=== PATIENT | male | born 1980 | race Caucasian/White ===

== ENCOUNTER 2021-11-14 11:01 | Emergency (ER) | payer OTHER ==
[~2021-11-14] VITALS: Ht 177.8 cm; Wt 99.8 kg
[2021-11-14] MEDS ORDERED: ALTEPLASE 100 MG/VIAL VIAL IV ONE (11:04)
--- NOTE | 2021-11-14 11:05 | NUR ---
BIBRA 89 FROM WORK C/O SOB, DIAPHORETIC, PALE SKIN COLOR, LOC, HIT HIS HEAD ON THE CONCRETE. BLOOD SUGAR 209. 88% ON ROOMA AIR, 95% ON NONREBREATHER. PT STATED HE HAS CHEST PRESSURE ON HIS UPPER CHEST. HAS HX OF BLOOD CLOT JUN 2021, PMD TOLD HIM TO TAKE IBUPROFEN AND PAIN WENT AWAY AND NO ADDITIONAL TESTS WERE DONE. PT ATTCHED TO MONITOR. 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 DR BERTRAND BALL AT BEDSIDE WITH ULTRASOUND. COVID TEST COLLECTED AND SENT.
[2021-11-14 11:29] LABS: BASOPHILS % (AUTO) 0.6 % (0.0-2.0); EOSINOPHILS % (AUTO) 4.8 % (0.0-6.0); HEMATOCRIT 44 % (39-51); HEMOGLOBIN 13.9 g/dL (13.5-17.5); LYMPHOCYTES # (AUTO) 3.2 K/uL (0.8-4.8); LYMPHOCYTES % (AUTO) 39.6 % (20.0-44.0); MEAN CORPUSCULAR HGB CONC 32 g/dl (31.0-36.0); MEAN CORPUSCULAR VOLUME 67 fL (80-96); MONOCYTES # (AUTO) 0.8 K/uL (0.1-1.30); MONOCYTES % (AUTO) 9.5 % (2.0-12.0); NEUTROPHILS # (AUTO) 3.7 K/uL (1.8-8.9); NEUTROPHILS % (AUTO) 45.5 % (43.0-81.0); PLATELET COUNT (AUTO) 271 K/uL (150-450); RED BLOOD CELL COUNT(AUTO) 6.47 MIL/uL (4.5-6.0); WHITE BLOOD COUNT (AUTO) 8.1 K/uL (4.3-11.0)
[2021-11-14 11:37] LABS: CALCIUM, SERUM 9.1 mg/dL (8.5-10.1); CARBON DIOXIDE 26 mmol/L (21-32); CHLORIDE 103 mmol/L (98-107); CREATININE 1.3 mg/dL (0.6-1.3); GLUCOSE 191 mg/dL (74-106); POTASSIUM 3.9 mmol/L (3.5-5.1); SODIUM SERUM 138 mmol/L (136-145); UREA NITROGEN, BLOOD 10 mg/dL (7-18)
[2021-11-14] MEDS ORDERED: ENOXAPARIN SODIUM 100 MG/ML DISP.SYRIN SQ ONE (11:45)
[2021-11-14] MEDS: ENOXAPARIN SODIUM 100 MG/ML DISP.SYRIN SQ ONE (11:48)
[2021-11-14 11:50] LABS: ALANINE AMINOTRANSFERASE 57 U/L (12-78); ALBUMIN 3.8 g/dL (3.4-5.0); ALKALINE PHOSPHATASE 117 U/L (46-116); ASPARTATE AMINOTRANSFERASE 49 U/L (15-37); BILIRUBIN,DIRECT 0.2 mg/dL (0.0-0.2); BILIRUBIN,TOTAL 0.5 mg/dL (0.2-1.0); TOTAL PROTEIN, SERUM 7.9 g/dL (6.4-8.2)
[2021-11-14] MEDS ORDERED: IV NS 0.9% 250 ML IV ONE (11:56)
[2021-11-14] MEDS ORDERED: IOHEXOL-350 100 ML VIAL IV ONE (11:56)
[2021-11-14] MEDS ORDERED: CT SWABBABLE VALVE TRANS SET 1 EA INFUS.SET MC ONE (11:56)
[2021-11-14] MEDS ORDERED: ALTEPLASE 1 VIAL ONE (12:23)
--- NOTE | 2021-11-14 12:27 | NUR ---
CALLED [facility] REGARDING POSSIBLE TRANSFER AND WAS NOTIFIED OF PT STATUTS. FAXED PT'S CLINICALS TO [phone]
--- NOTE | 2021-11-14 12:28 | NUR ---
CALLED [facility] REGARDING POSSIBLE TRANSFER AND WAS NOTIFIED THAT THERE ARE NO ICU BEDS AVAILABLE
[2021-11-14] MEDS ORDERED: TENECTEPLASE 50 MG KIT IV ONE (12:30)
[2021-11-14] MEDS: ALTEPLASE 100 MG/VIAL VIAL IV ONE (12:48)
[2021-11-14] MEDS: TENECTEPLASE 50 MG KIT IV ONE (12:50)
--- NOTE | 2021-11-14 12:53 | NUR ---
ULTRASOUND BEING DONE AT BEDSIDE
--- NOTE | 2021-11-14 14:12 | NUR ---
PT TAKEN TO CT
--- NOTE | 2021-11-14 14:24 | NUR ---
BACK FROM CT. CONNECTED TO MONITOR. VS STABLE.
--- NOTE | 2021-11-14 14:41 | NUR ---
[facility] CALLED AND WAS NOTIFIED THAT THE PT WILL RECIEVE AND ICU BED MOST LIKELY AFTER 1600. WAS NOTIFIED OF PTS STATUS. AWAITING FOR CALL BACK WITH TRANSPORTATION ETA VIA CCT
[2021-11-14] MEDS ORDERED: MECLIZINE HCL 12.5 MG TABLET ONE (15:39)
[2021-11-14] MEDS: MECLIZINE HCL 12.5 MG TABLET PO ONE (15:51)
--- NOTE | 2021-11-14 16:00 | NUR ---
10 L NONREBREATHER, POX 100%
--- NOTE | 2021-11-14 16:04 | NUR ---
[facility] CALLED WITH ACCEPTANCE INFO ICU BED 1204 NUMBER FOR REPORT [phone]
--- NOTE | 2021-11-14 16:13 | NUR ---
REPORT GIVEN TO [facility]
--- NOTE | 2021-11-14 16:21 | NUR ---
SPOKE TO SHAVON SEQUEIRA PT TO [facility] AT 2030
--- NOTE | 2021-11-14 19:02 | NUR ---
REPORT GIVEN TO [facility] UNIT 24 EMT BETTY.
--- NOTE | 2021-11-14 19:15 | NUR ---
PATIENT TRANSFERRED TO [facility] VIA [facility].
[2021-11-14 19:32] VITALS: BP 137/95
== END 2021-11-14 19:33 | disposition short-term general hospital (02) ==
LOC: ER 11:03
DX: I26.99 Other pulmonary embolism without acute cor pulmonale (principal); R00.0 Tachycardia, unspecified; Z86.718 Personal history of other venous thrombosis and embolism; R09.02 Hypoxemia; I82.813 Embolism and thrombosis of superficial veins of lower extremities, bilateral; Z20.822 Contact with and (suspected) exposure to COVID-19
CPT/HCPCS: 36415; 70450; 71045; 71275; 80048; 80076; 83605 ×2; 83880; 84484 ×3; 85025; 85730; 86850; 87040 ×2; 87426; 93005; 93307; 93970; 96372; 96374; 99291; C9803; J1650; J2997 ×2; J7050; J8597; Q9967